=== PATIENT | female | born 1945 | race Caucasian/White ===

== ENCOUNTER 2024-03-02 08:17 | Outpatient (CLI) | payer MEDICARE, BC | END 2024-03-02 08:18 | disposition home or self-care (01) | LOC: CSHSLEEP 08:17 | PROVIDERS: ATTEND Family Medicine | DX: G47.33 Obstructive sleep apnea (adult) (pediatric) (principal); R53.83 Other fatigue; R41.89 Other symptoms and signs involving cognitive functions and awareness; E11.9 Type 2 diabetes mellitus without complications; R06.83 Snoring; I11.9 Hypertensive heart disease without heart failure; R09.02 Hypoxemia | CPT/HCPCS: 95800 ==